=== PATIENT | female | born 1990 | race Caucasian/White ===

== ENCOUNTER 2017-01-17 13:51 | Emergency (ER) | payer OTHER ==
[~2017-01-17] VITALS: Ht 175.3 cm; Wt 61.2 kg
[~2017-01-17 13:51] MED LIST: IRON65 M1 PO; MOTRIN600 MG PO; MOTRIN800 MG PO; PNV PRENATAL HE1 TAB PO
[2017-01-17 14:09] VITALS: BP 115/79
--- NOTE | 2017-01-17 14:34 | NUR ---
Patient to bed 07.
--- NOTE | 2017-01-17 15:00 | NUR ---
PT BACK FROM X RAY
--- NOTE | 2017-01-17 15:00 | NUR ---
26/F BIB SELF C/O LOWER BACK PAIN X2 WEEKS. TC 3 WEEKS AGO DENIES LOC. DENIES LOC. SKIN IS PINK/WARM/DRY; AAOX4 WITH EVEN AND STEADY GAIT; LUNGS CLEAR BL; HR EVEN AND REGULAR; PATIENT STATES PAIN OF 8/10 AT THIS TIME; VSS; PATIENT POSITIONED FOR COMFORT; HOB ELEVATED; BEDRAILS UP X2; BED DOWN. ER MD MADE AWARE OF PT STATUS.
--- NOTE | 2017-01-17 15:00 | NUR ---
Note undone in EDM - 01/17/17 at 1547 by [email or web address] / BIB SELF C/O LOWER BACK PAIN X2 WEEKS. TC 3 WEEKS AGO DENIES LOC. DENIES LOC. SKIN IS PINK/WARM/DRY; AAOX4 WITH EVEN AND STEADY GAIT; LUNGS CLEAR BL; HR EVEN AND REGULAR; PATIENT STATES PAIN OF 0/10 AT THIS TIME; VSS; PATIENT POSITIONED FOR COMFORT; HOB ELEVATED; BEDRAILS UP X2; BED DOWN. ER MADE AWARE OF PT STATUS.
[2017-01-17] MEDS ORDERED: KETOROLAC 30 MG/ML VIAL IM ONE (15:15)
[2017-01-17] MEDS ORDERED: KETOROLAC 30 MG/ML VIAL ONE (15:36)
[2017-01-17 16:00] VITALS: BP 119/80
--- NOTE | 2017-01-17 16:00 | NUR ---
Patient discharged with v/s stable. Written and verbal after care instructions given and explained. Patient alert, oriented and verbalized understanding of instructions. Ambulatory with steady gait. All questions addressed prior to discharge. ID band removed. Patient advised to follow up with PMD. Rx of FLEXERIL, IBUPROFEN & METHYLPREDNISOLONE given. Patient educated on indication of medication including possible reaction and side effects. Opportunity to ask questions provided and answered.
== END 2017-01-17 16:00 | disposition home or self-care (01) ==
LOC: MED 13:51
DX: M54.5 Low back pain (principal)
CPT/HCPCS: 72110; 81025; 96372; 99284; J1885